=== PATIENT | male | born 1965 | race African-American/Black ===

== ENCOUNTER → 2016-05-18 | Outpatient (CLI) | payer OTHER ==
[~2016-05-18] MED LIST: COZAAR 25 MG TA25 M1 PO; KLOR-CON 1010 MEQ PO; NOHOMEMEDICATIONS; NORCO 5-325 TA1 EACH PO
== END ==
LOC: MRI 07:07
DX: S83.242A Other tear of medial meniscus, current injury, left knee, initial encounter (principal); M71.22 Synovial cyst of popliteal space [Baker], left knee; M25.562 Pain in left knee

== ENCOUNTER 2016-06-11 11:34 | Emergency (ER) | payer OTHER ==
[~2016-06-11] VITALS: Ht 170.2 cm; Wt 83.9 kg
[~2016-06-11 11:34] MED LIST changes: -KLOR-CON 1010 MEQ PO
[2016-06-11] MEDS ORDERED: KLOR-CON 1010 MEQ PO (11:54)
[2016-06-11 12:31] LABS: ABSOLUTE NEUTROPHILS 3.1 thou/uL (1.4-8.2); BASOPHILS 0.7 % (0.0-2.0); EOSINOPHILS 1.2 % (0.0-3.0); HEMOGLOBIN 15.8 gm/dL (14.0-18.0); LYMPHOCYTES 26.8 % (24.0-44.0); MANUAL DIFF NO; MCHC 33.5 % (28.0-37.0); MCV 92.4 fL (80.0-100.0); MONOCYTES 11.5 % (1.0-8.0); PLATELET COUNT 237 thou/uL (150-400); POLYS 59.8 % (36.0-66.0); RBC 5.09 mil/uL (4.50-6.00); RDW 13.8 % (10.5-14.5); WBC 5.3 thou/uL (4.0-11.0)
[2016-06-11 12:35] LABS: CALCIUM 8.6 mg/dL (8.5-10.1); CREATININE 1.2 mg/dL (0.6-1.3); POTASSIUM 4.4 mmol/L (3.5-5.1)
[2016-06-11 12:41] LABS: TOTAL BILIRUBIN 0.5 mg/dL (<0.1-1.0); TOTAL PROTEIN 7.3 g/dL (6.4-8.2)
[2016-06-11 13:22] LABS: URINE BILIRUBIN NEGATIVE (Negative); URINE BLOOD TRACE (Negative); URINE COLOR YELLOW; URINE GLUCOSE-RANDOM* NEGATIVE (Negative); URINE KETONES NEGATIVE (Negative); URINE LEUKOCYTES-REFLEX NEGATIVE (Negative); URINE PROTEIN (DIPSTICK) NEGATIVE (Negative); URINE UROBILINOGEN 0.2 E.U./dl (0.2-1.0)
== END 2016-06-11 14:19 | disposition home or self-care (01) ==
LOC: ER 11:34
PROVIDERS: Emergency Medicine
DX: R51 Headache (principal); I10 Essential (primary) hypertension; F10.99 Alcohol use, unspecified with unspecified alcohol-induced disorder

== ENCOUNTER → 2017-09-17 | Outpatient (CLI) | payer OTHER ==
[~2017-09-17] MED LIST changes: +KLOR-CON 1010 MEQ PO
== END ==
LOC: ULTRA 07:58
DX: R10.13 Epigastric pain (principal)

== ENCOUNTER 2018-08-30 08:38 | Emergency (ER) | payer OTHER ==
[~2018-08-30] VITALS: Ht 167.6 cm; Wt 83.9 kg
[2018-08-30 08:40] VITALS: BP 142/68
[2018-08-30] MEDS ORDERED: BACTRIM DS TAB1 EACH PO (09:35)
== END 2018-08-30 09:38 | disposition home or self-care (01) ==
LOC: ER 08:38
DX: L02.612 Cutaneous abscess of left foot (principal); I10 Essential (primary) hypertension